=== PATIENT | female | born 1995 | race Two or more races ===

== ENCOUNTER 2021-09-20 14:55 | Outpatient (CLI) | payer OTHER | END 2021-09-20 16:20 | disposition home or self-care (01) | LOC: PRENATAL 14:55 | DX: O36.80X0 Pregnancy with inconclusive fetal viability, not applicable or unspecified (principal); Z36.0 Encounter for antenatal screening for chromosomal anomalies; Z3A.14 14 weeks gestation of pregnancy ==

== ENCOUNTER 2021-11-02 15:32 | Outpatient (CLI) | payer OTHER | END 2021-11-02 16:36 | disposition home or self-care (01) | LOC: PRENATAL 15:32 | PROVIDERS: ATTEND Obstetrics & Gynecology Maternal & Fetal Medicine | DX: O35.0XX0 Maternal care for (suspected) central nervous system malformation in fetus, not applicable or unspecified (principal); O35.3XX0 Maternal care for (suspected) damage to fetus from viral disease in mother, not applicable or unspecified; Z3A.20 20 weeks gestation of pregnancy ==

== ENCOUNTER 2022-01-25 15:14 | Outpatient (CLI) | payer OTHER | END 2022-01-25 16:25 | disposition home or self-care (01) | LOC: PRENATAL 15:14 | PROVIDERS: ATTEND Obstetrics & Gynecology Maternal & Fetal Medicine | DX: O26.849 Uterine size-date discrepancy, unspecified trimester (principal); O36.8199 Decreased fetal movements, unspecified trimester, other fetus; O99.210 Obesity complicating pregnancy, unspecified trimester; Z3A.32 32 weeks gestation of pregnancy ==

== ENCOUNTER 2022-03-15 07:51 | Inpatient (IN) | payer OTHER ==
[~2022-03-15] VITALS: Ht 157.5 cm; Wt 3.2 kg
[2022-03-15] MEDS ORDERED: IRON325 MG PO (09:35)
[2022-03-15] MEDS ORDERED: PRENATAL TABLE1 EAC1 PO (09:35)
[2022-03-15] MEDS ORDERED: FOLIC ACID20 MG PO (09:35)
== END 2022-03-18 14:27 | disposition home or self-care (01) | DRG 788 ==
LOC: LDR 07:51 → O/R 19:17 → OB/GYN 21:18
PROVIDERS: ADMIT Obstetrics & Gynecology; ATTEND Obstetrics & Gynecology
PROC: 4A1HXCZ Monitoring of Products of Conception, Cardiac Rate, External Approach (ICD-10-PCS; 2022-03-15)
PROC: 10D00Z1 Extraction of Products of Conception, Low, Open Approach (ICD-10-PCS; principal; 2022-03-15 18:45)
DX: O33.8 Maternal care for disproportion of other origin (principal); Z3A.39 39 weeks gestation of pregnancy; Z37.0 Single live birth; Z20.822 Contact with and (suspected) exposure to COVID-19